=== PATIENT | female | born 1980 | race Asian ===

== ENCOUNTER 2021-03-15 08:10 | Emergency (ER) | payer OTHER ==
[2021-03-15 13:46] LABS: HIV (1/2) Antibody/Antigen Non-Reactive (NonReactive); HIV 1/2 INDEX 0.23 S/CO (<1.00)
[2021-03-15 18:19] LABS: Hep C IgG Ab Non-Reactive (NonReactive); Hep C Index 0.11 S/CO (0-0.79)
[2021-03-15 18:23] LABS: HBSAB Concentration 20.26 mIU/mL; Hep B Surf AB Reactive (NonReactive)
== END 2021-03-15 08:30 | disposition home or self-care (01) ==
LOC: BBPCJX 08:10
DX: J81.1 Chronic pulmonary edema (principal); Z77.21 Contact with and (suspected) exposure to potentially hazardous body fluids; I10 Essential (primary) hypertension; E11.9 Type 2 diabetes mellitus without complications; G47.30 Sleep apnea, unspecified
CPT/HCPCS: 86706; 86803; 87389; 99283